=== PATIENT | male | born 1975 | race Caucasian/White ===

== ENCOUNTER 2022-08-19 17:27 | Emergency (ER) | payer MEDICAID ==
[~2022-08-19] VITALS: Ht 348 cm; Wt 64.0 kg
[2022-08-19 17:34] VITALS: BP 131/87
== END 2022-08-19 21:59 | disposition left against medical advice (07) ==
LOC: ER 17:27
DX: Z53.21 Procedure and treatment not carried out due to patient leaving prior to being seen by health care provider (principal)

== ENCOUNTER 2025-02-06 00:02 | Emergency (ER) | payer MEDICAID, OTHER ==
[~2025-02-06] VITALS: Ht 170.2 cm; Wt 73.0 kg
[2025-02-06 00:06] VITALS: O2SAT 97
[2025-02-06 00:25] VITALS: BP 104/53; PULSE 69; RESP 13; TEMP 36.9; O2SAT 98
== END 2025-02-06 00:34 | disposition home or self-care (01) ==
LOC: ER 00:02
DX: F41.9 Anxiety disorder, unspecified (principal); F14.10 Cocaine abuse, uncomplicated; Z02.89 Encounter for other administrative examinations
CPT/HCPCS: 99283